=== PATIENT | female | born 1960 | race Caucasian/White ===

== ENCOUNTER → 2019-05-07 09:51 | Outpatient (BNVA) | payer MEDICAID, SELFPAY | PROVIDERS: Family Provider Nurse Practitioner Family; PCP Nurse Practitioner Family; Visit Provider Nurse Practitioner Family | DX: E78.5 Hyperlipidemia, unspecified (principal); I10 Essential (primary) hypertension; M25.512 Pain in left shoulder; M25.619 Stiffness of unspecified shoulder, not elsewhere classified; K21.9 Gastro-esophageal reflux disease without esophagitis | CPT/HCPCS: 36415; 80053; 80061 ==

== ENCOUNTER → 2019-06-02 10:50 | Outpatient (BNVA) | payer MEDICAID, SELFPAY | PROVIDERS: Family Provider Nurse Practitioner Family; PCP Nurse Practitioner Family; Visit Provider Nurse Practitioner Family | DX: R79.9 Abnormal finding of blood chemistry, unspecified (principal) | CPT/HCPCS: 36415; 80053 ==

== ENCOUNTER → 2020-01-13 14:21 | Outpatient (BNVA) | payer MEDICAID, SELFPAY | PROVIDERS: Family Provider Nurse Practitioner Family; PCP Nurse Practitioner Family; Visit Provider Nurse Practitioner Family | DX: Z87.39 Personal history of other diseases of the musculoskeletal system and connective tissue (principal) | CPT/HCPCS: 84550 ==

== ENCOUNTER → 2020-08-25 14:41 | Outpatient (BNVA) | payer MEDICAID, SELFPAY | PROVIDERS: Family Provider Nurse Practitioner Family; PCP Nurse Practitioner Family; Visit Provider Nurse Practitioner Family | DX: E55.9 Vitamin D deficiency, unspecified (principal); I10 Essential (primary) hypertension; R50.9 Fever, unspecified; Z87.39 Personal history of other diseases of the musculoskeletal system and connective tissue; M79.673 Pain in unspecified foot; M25.562 Pain in left knee; M25.561 Pain in right knee | CPT/HCPCS: 80053; 80061; 82306; 84443; 84550; 85025 ==

== ENCOUNTER → 2020-09-10 10:10 | Outpatient (BNVA) | payer MEDICAID, SELFPAY | PROVIDERS: Family Provider Nurse Practitioner Family; PCP Nurse Practitioner Family; Visit Provider Nurse Practitioner Family | DX: M10.9 Gout, unspecified (principal) | CPT/HCPCS: 84550 ==

== ENCOUNTER → 2021-08-31 16:54 | Outpatient (BNVA) | payer MEDICAID, SELFPAY | PROVIDERS: Family Provider Nurse Practitioner Family; PCP Nurse Practitioner Family; Visit Provider Nurse Practitioner Family | DX: M10.9 Gout, unspecified (principal); R20.8 Other disturbances of skin sensation; Z82.69 Family history of other diseases of the musculoskeletal system and connective tissue | CPT/HCPCS: 80053; 84550; 85651; 86038; 86140; 86200; 86431 ==

== ENCOUNTER → 2021-11-09 09:10 | Outpatient (BNVA) | payer MEDICAID, SELFPAY | PROVIDERS: Family Provider Nurse Practitioner Family; PCP Nurse Practitioner Family; Referring Provider Nurse Practitioner Family; Visit Provider Internal Medicine | DX: M10.9 Gout, unspecified (principal); R70.0 Elevated erythrocyte sedimentation rate; Z11.59 Encounter for screening for other viral diseases; Z11.1 Encounter for screening for respiratory tuberculosis; R79.89 Other specified abnormal findings of blood chemistry; M54.50 Low back pain, unspecified | CPT/HCPCS: 36415; 72040; 72072; 72100; 72202; 80053; 85025; 85651; 86140; 86160; 86162; 86200; 86235; 86255; 86376; 86431; 86480; 86704; 86803; 86812; 87340; 99204 ==

== ENCOUNTER → 2021-11-23 14:38 | Outpatient (BNVA) | payer MEDICAID, SELFPAY | PROVIDERS: Family Provider Nurse Practitioner Family; PCP Nurse Practitioner Family; Visit Provider Internal Medicine Nephrology | DX: N18.32 Chronic kidney disease, stage 3b (principal) | CPT/HCPCS: 80069; 82306; 82310; 82570; 83883; 83970; 84155; 84156; 84165; 85025 ==

== ENCOUNTER 2022-01-12 08:31 | Outpatient (CLI) | payer MEDICAID, SELFPAY ==
--- NOTE | 2022-01-12 08:40 | US_ITS ---
WS: [id number] RENAL ULTRASOUND HISTORY: STAGE 3B CHRONIC KIDNEY DZ COMPARISON: None available. TECHNIQUE: 2-D and color Doppler imaging of the kidney submitted. Right kidney: 8.8 cm x 3.7 cm x 4.3 cm. Low normal size kidney. No obstruction. No solid mass. Nonobstructing calcification in the mid kidney measures up to 10 x 13 x 7 mm. Additional cortical cyst superior kidney measures 16 x 16 x 10 mm. Left kidney: 10.4 cm x 4.3 cm x 4.0 cm. Normal size kidney. No cortical thinning. Shadowing from the central renal pelvis from multiple nonob structing renal calcifications. Cortical cyst mid kidney measures 11 x 13 x 10 mm. Aorta: Normal. Urinary Bladder: Nondistended. US/US renal BI* [id number] IMPRESSION: 1. Low normal size RIGHT kidney. 2. Numerous bilateral nonobstructing renal calculi. Greater number of calculi in the LEFT renal pelvis. 3. Small bilateral renal cysts.
== END 2022-01-12 08:32 | disposition home or self-care (01) ==
LOC: RAD 08:32
PROVIDERS: Family Provider Nurse Practitioner Family; PCP Nurse Practitioner Family; Visit Provider Internal Medicine Nephrology
DX: N18.32 Chronic kidney disease, stage 3b (principal); N20.0 Calculus of kidney; Q61.02 Congenital multiple renal cysts; M10.9 Gout, unspecified; M54.50 Low back pain, unspecified; R70.0 Elevated erythrocyte sedimentation rate; R79.89 Other specified abnormal findings of blood chemistry; R77.8 Other specified abnormalities of plasma proteins; Z15.89 Genetic susceptibility to other disease; M46.1 Sacroiliitis, not elsewhere classified; R76.8 Other specified abnormal immunological findings in serum
CPT/HCPCS: 76770; 99214

== ENCOUNTER → 2022-01-18 15:09 | Outpatient (BNVA) | payer MEDICAID, SELFPAY | PROVIDERS: Family Provider Nurse Practitioner Family; PCP Nurse Practitioner Family; Referring Provider Internal Medicine Nephrology; Visit Provider Internal Medicine | DX: E21.0 Primary hyperparathyroidism (principal); N20.0 Calculus of kidney; N18.30 Chronic kidney disease, stage 3 unspecified; F17.210 Nicotine dependence, cigarettes, uncomplicated | CPT/HCPCS: 80053; 82310; 83970; 99204 ==

== ENCOUNTER 2022-01-31 10:26 | Oncology outpatient (recurring) (ONCR) | payer MEDICAID, SELFPAY | END 2022-02-20 23:59 | disposition home or self-care (01) | PROVIDERS: PCP Nurse Practitioner Family; Visit Provider Internal Medicine Medical Oncology | DX: M25.59 Pain in other specified joint (principal); R76.8 Other specified abnormal immunological findings in serum; R74.8 Abnormal levels of other serum enzymes | CPT/HCPCS: 99203 ==

== ENCOUNTER → 2022-02-21 13:30 | Outpatient (BNVA) | payer MEDICAID, SELFPAY | PROVIDERS: PCP Nurse Practitioner Family; Visit Provider Surgery | DX: R19.7 Diarrhea, unspecified (principal); K21.9 Gastro-esophageal reflux disease without esophagitis | CPT/HCPCS: 99204 ==

== ENCOUNTER 2022-04-07 07:25 | Day surgery (SDC) | payer MEDICAID, SELFPAY ==
[2022-04-05 11:14] VITALS: BMI 37.2
[2022-04-07 07:54] VITALS: BP 185/98; PULSE 58; RESP 18; TEMP 35.9; O2SAT 98
[2022-04-07] MEDS: sodium chloride 0.9% 1,000 ML 30 ML IV (07:58)
--- NOTE | 2022-04-07 08:19 | P.ANESASSM_ITS ---
Pre-Anesthetic Assessment Height/Weight: Height 1.55 m Weight 89.358 kg Temp Pulse Resp BP Pulse Ox O2 Del Method 96.7 F L 58 L 18 185/98 98 04/07/22 07:54 04/07/22 07:54 04/07/22 07:54 04/07/22 07:54 04/07/22 07:54 04/07/22 07:54 Operation Date: 04/07/22 09:00 Proposed Procedures p [id number] egd, [id number] colon Z12.11,K21.9(Not Applicable) - DO benoit Brooks Colonoscopy(Not Applicable) - Carlin Pang DO Familial anesthetic complications: None Was Beta Qing taken within 24 hours: N/A Was Clonidine taken within 24 hours: N/A Last intake: Intake Last Liquid Date 04/06/22 Last Liquid Time 23:00 Last Solid Date 04/05/22 Last Solid Time 18:00 Social No alcohol and No tobacco former smoker Exam alert, oriented x 3, clear to auscultation bilaterally and regular rate & rhythm Airway Mallampati: Class II Dentition: false CV/HEM Hypertension Chronic Renal Insufficiency GI Gastroesophageal Reflux Disease Metabolic Hyperlipidemia hyperparathyroidism and hypercalcemia [facility] [place] Scoliosis Anesthetic Plan ASA status: 3 Anesthesia: MAC Risk of > 500 ml blood loss (7ml/kg in children): No Medications/Allergies Home Medications Medication Instructions Recorded Confirmed Last Taken Type loperamide 2 mg capsule See Rx Instructions .Route 02/16/22 04/07/22 04/03/22 Rx .COMPLEX PRN loose stool #30 caps amlodipine 10 mg tablet 10 mg PO DAILY 04/05/22 04/07/22 04/07/22 History losartan 100 mg tablet 100 mg PO DAILY 04/05/22 04/07/22 04/06/22 History metoprolol tartrate 100 mg tablet 100 mg PO BID 04/05/22 04/07/22 04/07/22 History Allergies Allergy/AdvReac Type Severity Reaction Status Date / Time No Known Allergies Allergy Verified 04/07/22 07:53 Current Medications Generic Name Dose Route Start Last Admin Trade Name Freq PRN Reason Stop Dose Admin Sodium Chloride 1,000 mls @ 30 mls/hr 04/07/22 08:00 04/07/22 07:58 Sodium Chloride 0.9% IV 04/08/22 07:59 30 mls/hr .Q24H JAZZY Administration PFSH Anesthesia Medical History (Updated 02/21/22 @ 14:32 by Carlin Pang DO) Chronic kidney disease Degenerative joint disease of spine Depression GERD (gastroesophageal reflux disease) Hx of gout Hyperlipidemia Hypertension Primary hyperparathyroidism Scoliosis Surgical History H/O section x 3 History of rotator cuff surgery x 2 Family History Father Dementia Grandfather Lung disease Other Cancer Diabetes Hyperlipidemia Hypertension Denies family history of CAD (coronary artery disease) Clotting disorder Psychiatric illness Chronic kidney disease (CKD) Suicide Anesthesia complication Bleeding disorder Stroke Social History Smoking and tobacco status: former smoker (Smoked x 20 years) Alcohol intake: never Household members: family Data Anesthesia Cardiac Studies: No Data to Display
--- NOTE | 2022-04-07 08:43 | PM.HP ---
Providers/Chief Complaint Primary Care Provider: Rossy Andres NP Chief Complaint: Gastro-oesophageal reflux disease without oesophag History of Present Illness Adali Yuen is a 62 year old female here for EGD and colonoscopy Medications/Allergies Home Medications Medication Instructions Recorded Confirmed Last Taken Type loperamide 2 mg capsule See Rx Instructions .Route 02/16/22 04/07/22 04/03/22 Rx .COMPLEX PRN loose stool #30 caps amlodipine 10 mg tablet 10 mg PO DAILY 04/05/22 04/07/22 04/07/22 History losartan 100 mg tablet 100 mg PO DAILY 04/05/22 04/07/22 04/06/22 History metoprolol tartrate 100 mg tablet 100 mg PO BID 04/05/22 04/07/22 04/07/22 History Allergies Allergy/AdvReac Type Severity Reaction Status Date / Time No Known Allergies Allergy Verified 04/07/22 07:53 PFSH Acute PFSH: Medical History (Updated 02/21/22 @ 14:32 by Carlin Pang DO) Chronic kidney disease Degenerative joint disease of spine Depression GERD (gastroesophageal reflux disease) Hx of gout Hyperlipidemia Hypertension Primary hyperparathyroidism Scoliosis Surgical History H/O section x 3 History of rotator cuff surgery x 2 Family History Father Dementia Grandfather Lung disease Other Cancer Diabetes Hyperlipidemia Hypertension Denies family history of CAD (coronary artery disease) Clotting disorder Psychiatric illness Chronic kidney disease (CKD) Suicide Anesthesia complication Bleeding disorder Stroke Social History Smoking and tobacco status: former smoker (Smoked x 20 years) Alcohol intake: never Household members: family Vitals/I&O/Wt Last Vital Signs Temp 96.7 F L 04/07/22 07:54 Pulse 58 L 04/07/22 07:54 Resp 18 04/07/22 07:54 BP 185/98 04/07/22 07:54 Pulse Ox 98 04/07/22 07:54 O2 Del Method 04/07/22 07:54 Weight last 48 hrs Weight 197 lb A&P Assessment and plan (1) GERD (gastroesophageal reflux disease): (2) Encounter for screening colonoscopy: Plan EGD and colonoscopy Attestations Medical Necessity Statement*: Home Coding Level of Care Code Acute Air Route Traffic Controller for Chg Fwd Diagnoses GERD (gastroesophageal reflux disease) K21.9 Encounter for screening colonoscopy Z12.11
[2022-04-07 09:17] VITALS: BP 105/52; PULSE 54; RESP 16; TEMP 36.3; O2SAT 98
[2022-04-07 09:25] VITALS: BP 111/57; PULSE 49; RESP 16; O2SAT 98
--- NOTE | 2022-04-07 14:35 | ANE.PACU2 ---
Inpatient post-anesthesia follow up: Airway intact: Yes Vital signs: Temperature 97.3 F Pulse Rate 49 Respiratory Rate 16 Blood Pressure 111/57 Pulse Oximetry 98 Oxygen Delivery Me thod Room Air Oxygen Flow Rate Fraction of Inspir ed Oxygen Hydration adequate: Yes Nausea and vomiting: No Pain level: 1 Mental status: Baseline
== END 2022-04-07 09:50 | disposition home or self-care (01) ==
PROVIDERS: PCP Nurse Practitioner Family; Visit Provider Surgery
PROC: 0DJ08ZZ Inspection of Upper Intestinal Tract, Via Natural or Artificial Opening Endoscopic (ICD-10-PCS; CPT 43235; principal; 2022-04-07 09:00)
PROC: 0DJD8ZZ Inspection of Lower Intestinal Tract, Via Natural or Artificial Opening Endoscopic (ICD-10-PCS; CPT 45378; 2022-04-07 09:00)
DX: Z12.11 Encounter for screening for malignant neoplasm of colon (principal); K21.9 Gastro-esophageal reflux disease without esophagitis; K57.30 Diverticulosis of large intestine without perforation or abscess without bleeding; E78.5 Hyperlipidemia, unspecified; I12.9 Hypertensive chronic kidney disease with stage 1 through stage 4 chronic kidney disease, or unspecified chronic kidney disease; N18.9 Chronic kidney disease, unspecified; Z87.891 Personal history of nicotine dependence
CPT/HCPCS: 43235; 45380; 82274; 83630; 87493; 87506; 88305; J2704; J7030

== ENCOUNTER → 2022-04-26 16:09 | Outpatient (BNVA) | payer MEDICAID, SELFPAY | PROVIDERS: PCP Nurse Practitioner Family; Visit Provider Surgery | DX: Z09 Encounter for follow-up examination after completed treatment for conditions other than malignant neoplasm (principal) | CPT/HCPCS: 99212 ==

== ENCOUNTER → 2022-05-15 14:35 | Outpatient (BNVA) | payer MEDICAID, SELFPAY | PROVIDERS: PCP Nurse Practitioner Family; Visit Provider Internal Medicine | DX: R21 Rash and other nonspecific skin eruption (principal); R76.8 Other specified abnormal immunological findings in serum; Z15.89 Genetic susceptibility to other disease; M10.9 Gout, unspecified; R70.0 Elevated erythrocyte sedimentation rate; R79.89 Other specified abnormal findings of blood chemistry; E83.52 Hypercalcemia; R77.8 Other specified abnormalities of plasma proteins; M54.50 Low back pain, unspecified; M54.2 Cervicalgia | CPT/HCPCS: 36415; 73120; 73620; 80053; 81001; 84550; 85025; 85651; 86140; 87086; 99214 ==

== ENCOUNTER → 2022-05-29 15:59 | Outpatient (BNVA) | payer MEDICAID, SELFPAY | PROVIDERS: PCP Nurse Practitioner Family; Visit Provider Internal Medicine Nephrology | DX: N18.32 Chronic kidney disease, stage 3b (principal) | CPT/HCPCS: 80069; 82043; 82310; 83970; 85025 ==

== ENCOUNTER → 2023-03-22 13:39 | Outpatient (BNVA) | payer MEDICAID, SELFPAY | PROVIDERS: PCP Nurse Practitioner Family; Visit Provider Emergency Medicine | DX: M25.562 Pain in left knee (principal) | CPT/HCPCS: 73562 ==

== ENCOUNTER → 2023-10-02 10:02 | Outpatient (BNVA) | payer MEDICAID, SELFPAY | PROVIDERS: PCP Nurse Practitioner Family; Visit Provider Nurse Practitioner Family | DX: I10 Essential (primary) hypertension (principal) | CPT/HCPCS: 80053; 80061; 84443 ==